=== PATIENT | female | born 1985 | race Caucasian/White ===

== ENCOUNTER 2017-06-12 10:25 | Emergency (ER) | payer OTHER ==
--- NOTE | 2017-06-12 11:17 | Emergency Department Record ---
History of Present Illness - General Chief Complaint: Abdominal Pain Stated Complaint: ABD PAIN Time Seen by Provider: 06/12/17 11:08 Source: Patient, RN notes reviewed Mode of Arrival: Ambulatory - History of Present Illness Initial Comments: patient has right upper quad pain which last night at 3 am and she had some discomfort yesterday. 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 No dysuria, No diarrhea and eating seemed to make this worse. Onset/Timin -: Days(s) Location: RUQ, RLQ Radiation: R flank Migration to: RLQ Severity: Mild Severity scale (1-10): 1 Quality: Cramping, Sharp Consistency: Intermittent Improves With: Nothing Worsens With: Eating Associated Symptoms: Nausea, Vomiting - Related Data LMP (females 10-50): 3 weeks ago Home Medications Medication Instructions Recorded Confirmed Last Taken Ascorbic Acid [Vitamin C] 1,000 mg PO DAILY 06/12/17 06/12/17 06/11/17 Bupropion HCl [Wellbutrin Xl] 300 mg PO DAILY 06/12/17 06/12/17 06/11/17 Buspirone HCl [Buspar] 15 mg PO BID 06/12/17 06/12/17 06/11/17 Cholecalciferol (Vitamin D3) 50,000 unit PO WEEKLY 06/12/17 06/12/17 06/07/17 [Vitamin D] Cyanocobalamin (Vitamin B-12) 1,000 mcg IJ MONTHLY 06/12/17 06/12/17 Unknown [Cyanocobalamin Injection] Ibuprofen [Motrin] 800 mg PO Q8H PRN 06/12/17 06/12/17 06/11/17 Lisdexamfetamine Dimesylate 30 mg PO DAILY 06/12/17 06/12/17 06/11/17 [Vyvanse] Previous Rx's Medication Instructions Recorded Tramadol HCl [Ultram] 50 mg PO Q8H #20 tab 06/12/17 Allergies Allergy/AdvReac Type Severity Reaction Status Date / Time No Known Drug Allergies Allergy Verified 06/12/17 11:01 Travel Screening - Travel/Exposure Within Last 30 Days Have you traveled within the last 30 days?: Yes Location Detail:: [place] - Travel/Exposure Within Last Year Have you traveled outside the [place] in the last year?: No - Additonal Travel Details Have you been exposed to anyone with a communicable illness?: No - Travel Symptoms Symptom Screening: None Review of Systems Reviewed: No additional complaints except as noted below Constitutional: Reports: As per HPI. Denies: Chills, Fever, Malaise, Night sweats, Weakness, Weight change Eyes: Reports: As per HPI. Denies: Eye discharge, Eye pain, Photophobia, Vision change ENT: Reports: As per HPI. Denies: Congestion, Dental pain, Ear pain, Epistaxis , Hearing loss, Throat pain Respiratory: Reports: As per HPI. Denies: Cough, Dyspnea, Hemoptysis, Stridor, Wheezes Cardiovascular: Reports: As per HPI. Denies: Arrhythmia, Chest pain, Dyspnea on exertion, Edema, Murmurs, Orthopnea, Palpitations, Paroxysmal nocturnal dyspnea, Rheumatic Fever, Syncope Endocrine: Reports: As per HPI. Denies: Fatigue, Heat or cold intolerance, Polydipsia, Polyuria Gastrointestinal: Reports: As per HPI, Abdominal pain. Denies: Constipation, Diarrhea, Hematemesis, Hematochezia, Melena, Nausea, Vomiting Genitourinary: Reports: As per HPI. Denies: Abnormal menses, Discharge, Dyspareunia, Dysuria, Frequency, Hematuria, Incontinence, Retention, Urgency Musculoskeletal: Reports: As per HPI. Denies: Arthralgia, Back pain, Gout, Joint swelling, Myalgia, Neck pain Skin: Reports: As per HPI. Denies: Bruising, Change in color, Change in hair/ nails, Lesions, Pruritus, Rash Neurological: Reports: As per HPI. Denies: Abnormal gait, Confusion, Headache, Numbness, Paresthesias, Seizure, Tingling, Tremors, Vertigo, Weakness Psychiatric: Reports: As per HPI. Denies: Anxiety, Auditory hallucinations, Depression, Homicidal thoughts, Suicidal thoughts, Visual hallucinations Hematological/Lymphatic: Reports: As per HPI. Denies: Anemia, Blood Clots, Easy bleeding, Easy bruising, Swollen glands Past Medical History - SOCIAL HISTORY Smoking Status: Former smoker Alcohol Use: Rare Drug Use: None - RESPIRATORY Hx Respiratory Disorders: No - CARDIOVASCULAR Hx Cardio Disorders: Yes Comment:: murmer - NEURO Hx Neuro Disorders: No - GI Hx GI Disorders: No - Hx Genitourinary Disorders: No - ENDOCRINE Hx Endocrine Disorders: No - MUSCULOSKELETAL Hx Musculoskeletal Disorders: No - PSYCH Hx Psych Problems: Yes Hx Anxiety: Yes Comment:: binge eating - HEMATOLOGY/ONCOLOGY Hx Hematology/Oncology Disorders: No Family Medical History Any Significant Family History?: No Family Hx Comment (NOT TO BE USED IN PLACE OF ITEMS BELOW): mother gallbladder Hx Alcohol Use: Father, Grandparents Hx Heart Disease: Grandparents Hx HTN: Father, Grandparents Hx Resp Disorders: Grandparents Hx Stroke: Father, Grandparents Physical Exam - General General Appearance: Alert, Oriented x3, Cooperative, No acute distress - Head Head exam: Normal inspection - Eye Eye exam: Normal appearance, PERRL Pupils: Normal accommodation - ENT ENT exam: Normal exam, Mucous membranes moist, Normal external ear exam, Normal orophraynx, TM's normal bilaterally Ear exam: Normal external inspection. negative: External canal tenderness Nasal Exam: Normal inspection. negative: Discharge, Sinus tenderness Mouth exam: Normal external inspection, Tongue normal Teeth exam: Normal inspection. negative: Dental caries Throat exam: Normal inspection. negative: Tonsillar erythema, Tonsillar exudate - Neck Neck exam: Normal inspection, Full ROM. negative: Tenderness - Respiratory Respiratory exam: Normal lung sounds bilaterally. negative: Respiratory distress - Cardiovascular Cardiovascular Exam: Regular rate, Normal rhythm, Normal heart sounds - GI/Abdominal GI/Abdominal exam: Soft, Normal bowel sounds, Tenderness (right upper quad pain) - Rectal Rectal exam: Deferred - exam: Deferred - Extremities Extremities exam: Normal inspection, Full ROM, Normal capillary refill. negative: Tenderness - Back Back exam: Reports: Normal inspection, Full ROM. Denies: Muscle spasm, Rash noted, Tenderness - Neurological Neurological exam: Alert, Normal gait, Oriented X3, Reflexes normal - Psychiatric Psychiatric exam: Normal affect, Normal mood - Skin Skin exam: Dry, Intact, Normal color, Warm Course Vital Signs 06/12/17 10:28 Temperature 98.4 F Pulse Rate 109 H Respiratory 20 Rate Blood Pressure 138/72 Pulse Ox 96 - Reevaluation(s) Reevaluation #1: GB sludge and positive murphies sign 06/12/17 15:01 Reevaluation #2: consult with Cherri Batista next saturday, discussed case with Dr. Harley 06/12/17 15:02 06/12/17 15:08 Medical Decision Making - Lab Data Result diagrams: 06/12/17 11:17 06/12/17 11:17 Disposition Clinical Impression: Biliary colic, Gallbladder disease Disposition: Home, Self-Care Condition: (1) Good Instructions: Cholecystitis (ED), Biliary Colic (ED) Additional Instructions: return if pain moves to the right lower quad or fever or more abdominal pain tylenol for mild pain ultram for severe pain Prescriptions: Tramadol HCl [Ultram] 50 mg PO Q8H #20 tab Forms: Patient Portal Access Time of Disposition: 15:11 Quality - Quality Measures Quality Measures: N/A - Blood Pressure Screening Does Patient Have Any of the Following: No Blood Pressure Classification: Pre-Hypertensive BP Reading Systolic Measurement: 138 Diastolic Measurement: 72 Screening for High Blood Pressure: < Pre-Hypertensive BP, F/U Documented > [ G8950] Pre-Hypertensive Follow-up Interventions: Referral to alternative/primary care provider.
[2017-06-12 11:24] LABS: BASO % 0.1 % (0-6); EOS % 3.5 % (0-6); GRAN % 71.8 % (47-80); HEMOGLOBIN 14.3 gm/dl (11.6-16.0); LYMPH % 18.2 % (16-45); MEAN CELL VOLUME 89.4 fl (81-97); MEAN CORPUSCULAR HEMOGLOBIN 29.7 pg (27-33); MEAN CORPUSCULAR HGB CONC 33.3 g/dl (32-36); MEAN PLATELET VOLUME 8.7 fl (7.4-10.4); MONO % 6.4 % (0-9); PLATELET COUNT 390 K/uL (130-400); RED BLOOD COUNT 4.81 M/uL (3.80-5.40); RED CELL DISTRIBUTION WIDTH 13.7 % (11.5-14.5); WHITE BLOOD COUNT W/O DIFF 10.5 K/uL (4.2-12.2)
[2017-06-12] MEDS: 0.9 % SODIUM CHLORIDE 1,000 ML BAG IV ONE (11:24)
[2017-06-12 11:27] LABS: URINE APPEARANCE CLEAR; URINE BILIRUBIN NEGATIVE (NEGATIVE); URINE BLOOD NEGATIVE (NEGATIVE); URINE COLOR YELLOW; URINE GLUCOSE (UA) NEGATIVE (NEGATIVE); URINE KETONE NEGATIVE (NEGATIVE); URINE LEUKOCYTE ESTERASE NEGATIVE (NEGATIVE); URINE NITRITE NEGATIVE (NEGATIVE); URINE PROTEIN NEGATIVE (NEGATIVE); URINE UROBILINOGEN 0.2 E.U./dL (0.20 - 1.00)
[2017-06-12 11:30] LABS: HCG,QUALITATIVE URINE NEGATIVE (NEGATIVE)
[2017-06-12 11:34] LABS: BLOOD UREA NITROGEN 12 mg/dL (6-20)
[2017-06-12 11:35] LABS: CREATININE 0.6 mg/dL (0.5-0.9); EST GLOMERULAR FILTRATION RATE > 60 mL/min; TOTAL PROTEIN 7.5 g/dL (6.6-8.7)
[2017-06-12 11:37] LABS: GLUCOSE,RANDOM 92 mg/dL (74-109)
[2017-06-12 11:40] LABS: ALBUMIN 4.3 g/dL (4.0-5.0); ALKALINE PHOSPHATASE 48 U/L (35-104); ALT/SGPT 17 U/L (<33); AST/SGOT 15 U/L (10.0-35.0); LIPASE 28 U/L (13-60)
[2017-06-12 11:41] LABS: BILIRUBIN,DIRECT < 0.2 mg/dL (0-0.3)
--- NOTE | 2017-06-12 15:19 | Emergency Department Record ---
History of Present Illness - General Chief Complaint: Abdominal Pain Stated Complaint: ABD PAIN Time Seen by Provider: 06/12/17 11:08 Source: Patient, RN notes reviewed Mode of Arrival: Ambulatory - History of Present Illness Onset/Timin -: Days(s) Location: RUQ, RLQ Radiation: R flank Migration to: RLQ Severity: Mild Severity scale (1-10): 1 Quality: Cramping, Sharp Consistency: Intermittent Improves With: Nothing Worsens With: Eating Associated Symptoms: Nausea, Vomiting - Related Data LMP (females 10-50): 3 weeks ago Patient : No Home Medications Medication Instructions Recorded Confirmed Last Taken Ascorbic Acid [Vitamin C] 1,000 mg PO DAILY 06/12/17 06/12/17 06/11/17 Bupropion HCl [Wellbutrin Xl] 300 mg PO DAILY 06/12/17 06/12/17 06/11/17 Buspirone HCl [Buspar] 15 mg PO BID 06/12/17 06/12/17 06/11/17 Cholecalciferol (Vitamin D3) 50,000 unit PO WEEKLY 06/12/17 06/12/17 06/07/17 [Vitamin D] Cyanocobalamin (Vitamin B-12) 1,000 mcg IJ MONTHLY 06/12/17 06/12/17 Unknown [Cyanocobalamin Injection] Ibuprofen [Motrin] 800 mg PO Q8H PRN 06/12/17 06/12/17 06/11/17 Lisdexamfetamine Dimesylate 30 mg PO DAILY 06/12/17 06/12/17 06/11/17 [Vyvanse] Previous Rx's Medication Instructions Recorded Omeprazole 20 mg PO DAILY #30 cap. 06/12/17 Tramadol HCl [Ultram] 50 mg PO Q8H #20 tab 06/12/17 Allergies Allergy/AdvReac Type Severity Reaction Status Date / Time No Known Drug Allergies Allergy Verified 06/12/17 11:01 Travel Screening - Travel/Exposure Within Last 30 Days Have you traveled within the last 30 days?: Yes Location Detail:: [place] - Travel/Exposure Within Last Year Have you traveled outside the [place] in the last year?: No - Additonal Travel Details Have you been exposed to anyone with a communicable illness?: No - Travel Symptoms Symptom Screening: None Review of Systems Constitutional: Reports: As per HPI. Denies: Chills, Fever, Malaise, Night sweats, Weakness, Weight change Eyes: Reports: As per HPI. Denies: Eye discharge, Eye pain, Photophobia, Vision change ENT: Reports: As per HPI. Denies: Congestion, Dental pain, Ear pain, Epistaxis , Hearing loss, Throat pain Respiratory: Reports: As per HPI. Denies: Cough, Dyspnea, Hemoptysis, Stridor, Wheezes Cardiovascular: Reports: As per HPI. Denies: Arrhythmia, Chest pain, Dyspnea on exertion, Edema, Murmurs, Orthopnea, Palpitations, Paroxysmal nocturnal dyspnea, Rheumatic Fever, Syncope Endocrine: Reports: As per HPI. Denies: Fatigue, Heat or cold intolerance, Polydipsia, Polyuria Gastrointestinal: Reports: As per HPI, Abdominal pain. Denies: Constipation, Diarrhea, Hematemesis, Hematochezia, Melena, Nausea, Vomiting Genitourinary: Reports: As per HPI. Denies: Abnormal menses, Discharge, Dyspareunia, Dysuria, Frequency, Hematuria, Incontinence, Retention, Urgency Musculoskeletal: Reports: As per HPI. Denies: Arthralgia, Back pain, Gout, Joint swelling, Myalgia, Neck pain Skin: Reports: As per HPI. Denies: Bruising, Change in color, Change in hair/ nails, Lesions, Pruritus, Rash Neurological: Reports: As per HPI. Denies: Abnormal gait, Confusion, Headache, Numbness, Paresthesias, Seizure, Tingling, Tremors, Vertigo, Weakness Psychiatric: Reports: As per HPI. Denies: Anxiety, Auditory hallucinations, Depression, Homicidal thoughts, Suicidal thoughts, Visual hallucinations Hematological/Lymphatic: Reports: As per HPI. Denies: Anemia, Blood Clots, Easy bleeding, Easy bruising, Swollen glands Past Medical History - SOCIAL HISTORY Smoking Status: Former smoker Alcohol Use: Rare Drug Use: None - RESPIRATORY Hx Respiratory Disorders: No - CARDIOVASCULAR Hx Cardio Disorders: Yes Comment:: murmer - NEURO Hx Neuro Disorders: No - GI Hx GI Disorders: No - Hx Genitourinary Disorders: No - ENDOCRINE Hx Endocrine Disorders: No - MUSCULOSKELETAL Hx Musculoskeletal Disorders: No - PSYCH Hx Psych Problems: Yes Hx Anxiety: Yes Comment:: binge eating - HEMATOLOGY/ONCOLOGY Hx Hematology/Oncology Disorders: No Family Medical History Any Significant Family History?: No Family Hx Comment (NOT TO BE USED IN PLACE OF ITEMS BELOW): mother gallbladder Hx Alcohol Use: Father, Grandparents Hx Heart Disease: Grandparents Hx HTN: Father, Grandparents Hx Resp Disorders: Grandparents Hx Stroke: Father, Grandparents Course Vital Signs 06/12/17 06/12/17 06/12/17 10:28 11:56 13:00 Temperature 98.4 F Pulse Rate 109 H Pulse Rate [ 80 99 H Pulse Ox Probe] Respiratory 20 16 16 Rate Blood Pressure 138/72 Blood Pressure 129/62 110/58 [Left Arm] Pulse Ox 96 99 97 06/12/17 06/12/17 14:13 15:11 Temperature Pulse Rate Pulse Rate [ 76 86 Pulse Ox Probe] Respiratory 16 16 Rate Blood Pressure Blood Pressure 117/64 126/67 [Left Arm] Pulse Ox 95 97 Medical Decision Making - Lab Data Result diagrams: 06/12/17 11:17 06/12/17 11:17 Lab Results 06/12/17 06/12/17 06/12/17 Range/Units 11:17 11:17 11:17 WBC 10.5 (4.2-12.2) K/uL RBC 4.81 (3.80-5.40) M/uL Hgb 14.3 (11.6-16.0) gm/dl Hct 43.0 (35.0-47.0) % MCV 89.4 (81-97) fl MCH 29.7 (27-33) pg MCHC 33.3 (32-36) g/dl RDW 13.7 (11.5-14.5) % Plt Count 390 (130-400) K/uL MPV 8.7 (7.4-10.4) fl Gran % 71.8 (47-80) % Lymphocytes % 18.2 (16-45) % Monocytes % 6.4 (0-9) % Eosinophils % 3.5 (0-6) % Basophils % 0.1 (0-6) % Sodium 144 (136-145) mmol/L Potassium 4.2 (3.4-4.5) mmol/L Chloride 102 (98-107) mmol/L Carbon Dioxide 27.0 (22-29) mmol/L Anion Gap 15.0 (7-16) BUN 12 (6-20) mg/dL Creatinine 0.6 (0.5-0.9) mg/dL Estimated GFR > 60 mL/min Random Glucose 92 (74-109) mg/dL Calcium 9.2 (8.6-10.0) mg/dL Total Bilirubin 0.20 (0.2-1.0) mg/dL Direct Bilirubin < 0.2 (0-0.3) mg/dL AST 15 (10.0-35.0) U/L ALT 17 (<33) U/L Alkaline Phosphatase 48 (35-104) U/L Total Protein 7.5 (6.6-8.7) g/dL Albumin 4.3 (4.0-5.0) g/dL Lipase 28 (13-60) U/L Urine Color Yellow Urine Appearance Clear Urine pH 7.0 (5.0-8.0) Ur Specific [place] 1.025 (1.002-1.030) Urine Protein Negative (NEGATIVE) Urine Glucose (UA) Negative (NEGATIVE) Urine Ketones Negative (NEGATIVE) Urine Blood Negative (NEGATIVE) Urine Nitrite Negative (NEGATIVE) Urine Bilirubin Negative (NEGATIVE) Urine Urobilinogen 0.2 (0.20 - 1.00) E.U./dL Ur Leukocyte Esterase Negative (NEGATIVE) Urine HCG, Qual Negative (NEGATIVE) Disposition Clinical Impression: Biliary colic, Gallbladder disease Disposition: Home, Self-Care Condition: (1) Good Instructions: Cholecystitis (ED), Biliary Colic (ED) Additional Instructions: return if pain moves to the right lower quad or fever or more abdominal pain tylenol for mild pain ultram for severe pain Prescriptions: Omeprazole 20 mg PO DAILY #30 jalil. Tramadol HCl [Ultram] 50 mg PO Q8H #20 tab Forms: Patient Portal Access Time of Disposition: 15:20 Quality - Quality Measures Quality Measures: N/A - Blood Pressure Screening Does Patient Have Any of the Following: No Blood Pressure Classification: Pre-Hypertensive BP Reading Systolic Measurement: 138 Diastolic Measurement: 72 Screening for High Blood Pressure: < Pre-Hypertensive BP, F/U Documented > [ G8950] Pre-Hypertensive Follow-up Interventions: Referral to alternative/primary care provider.
--- NOTE | 2017-06-13 09:05 | ULTRASOUND REPORT ---
EXAM: COMPLETE ABDOMEN ULTRASOUND HISTORY: RIGHT UPPER QUADRANT PAIN FOR A DAY. NAUSEA AND VOMITING THIS MORNING. TECHNIQUE: Complete real-time ultrasound examination of the abdomen was obtained. Comparison: None. FINDINGS: The majority of the pancreas was visualized and was negative as seen with no pancreatic mass or peripancreatic fluid collection evident. The abdominal aorta was negative as seen although a segment of the mid abdominal aorta was consistently obscured by overlying bowel content. No aneurysm identified in the visualized portion of the aorta. The IVC was negative as seen. The liver appears negative with no hepatic mass or intrahepatic biliary dilatation seen. The right kidney measures about 11.6 cm in length with no hydronephrosis evident. The common duct was seen and was of normal caliber. Somewhat thick walled appearance of the distal stomach is nonspecific although presumably just due to incomplete distention. The gallbladder is identified with no diffuse thickening of the gallbladder wall. No pericholecystic fluid collection evident. There probably is a small amount of sludge present in the gallbladder, but no actual gallstones were identified. The left kidney measures 11.8 cm in length with no hydronephrosis evident. The spleen appears negative. IMPRESSION: 1. THERE IS PROBABLY SOME SLUDGE IN THE GALLBLADDER, BUT NO DEFINITE GALLSTONES IDENTIFIED AND NO BILIARY DILATATION SEEN. 2. NO HYDRONEPHROSIS ON EITHER SIDE. 3. SOMEWHAT THICK WALLED APPEARANCE OF THE INCIDENTALLY VISUALIZED DISTAL STOMACH IS NONSPECIFIC ALTHOUGH PRESUMABLY JUST DUE TO INCOMPLETE DISTENTION. JOB NUMBER: [id number] [facility]
== END 2017-06-12 15:42 | disposition home or self-care (01) ==
LOC: ER 10:25
DX: K80.50 Calculus of bile duct without cholangitis or cholecystitis without obstruction (principal); R11.2 Nausea with vomiting, unspecified; F17.210 Nicotine dependence, cigarettes, uncomplicated
CPT/HCPCS: 76700; 80048; 80076; 81003; 81025; 83690; 85025; 99284; J7030